=== PATIENT | female | born 1990 | race Caucasian/White ===

== ENCOUNTER 2017-06-01 09:32 | Outpatient (CLI) | payer BC ==
--- NOTE | 2017-06-01 10:54 | ULT ---
SOFT TISSUE ULTRASOUND NECK: History: 27-year-old female with history of mass behind her ear. There is a palpable mass behind her right ear and right neck. FINDINGS: The palpable finding behind the right ear shows evidence for this being a lymph node measuring 0.3 x 1.4 cm. Additionally in the right neck there are multiple lymph nodes up to approximately 0.6 x 1.7 c m. IMPRESSION: A palpable finding behind the right ear appears to represent a lymph node as well as some other borde rline size lymph nodes seen in the right neck. POS: NIMA
== END 2017-06-01 09:33 | disposition home or self-care (01) ==
LOC: SCSULT 09:32
PROVIDERS: ATTEND Nurse Practitioner Family
DX: M79.9 Soft tissue disorder, unspecified (principal)
CPT/HCPCS: 76999

== ENCOUNTER 2017-11-10 21:09 | Emergency (ER) | payer BC ==
[2017-11-10 21:52] LABS: #Basophils 0.1 thou/uL (0.0-0.2); #Lymphocytes 1.8 thou/uL (1.20-3.40); #Monocytes 0.5 thou/uL (0.11-0.59); #Neutrophils 5.8 thou/uL (1.40-6.50); %Basophils 0.8 % (0.0-1.0); %Eosinophils 0.2 % (0.0-10.0); %Lymphocytes 21.7 % (21.0-51.0); %Monocytes 5.7 % (0.0-10.0); %Neutrophils 71.7 % (42.0-75.0); Hemoglobin 13.2 g/dL (12.0-16.0); Mean Corpuscular HGB CONC 32.7 g/dL (32.0-36.0); Mean Corpuscular Hemoglobin 30.2 pg (27.0-31.0); Mean Corpuscular Volume 92.5 fL (78.0-98.0); Platelet Count 315 thou/uL (130-400); RBC Distribution Width 11.5 % (11.5-14.5); Red Blood Cell (RBC) Count 4.37 mill/uL (4.20-5.40); White Blood Cell (WBC) Count 8.1 thou/uL (4.8-10.8)
[2017-11-10] MEDS ORDERED: HYDROcodone/Acetaminophen 5/325 mg Tablet ONE (22:12)
[2017-11-10 22:14] LABS: ALT (SGPT) 10 U/L (8-55); AST (SGOT) 10 U/L (5-34); Albumin 4.3 g/dL (3.5-5.0); Alkaline Phosphatase 49 U/L (40-150); Anion Gap 12 mmol/L (10-20); BUN (Urea Nitrogen) 5 mg/dL (7.0-18.7); Bilirubin, Total 0.3 mg/dL (0.2-1.2); Calc. Creatinine Clearance 0 mL/min (70-130); Calcium 9.2 mg/dL (7.8-10.44); Carbon Dioxide 22 mmol/L (22-29); Chloride 105 mmol/L (98-107); Estimated GFR-MDRD Greater than 90; Globulin 3.3 g/dL (2.4-3.5); Glucose 140 mg/dL (70-105); Lipase 16 U/L (8-78); Potassium 3.5 mmol/L (3.5-5.1); Protein, Total 7.6 g/dL (6.0-8.3); Sodium 135 mmol/L (136-145)
[2017-11-10] MEDS ORDERED: Ondansetron ODT 8 MG TAB ONE (22:16)
[2017-11-10 22:23] LABS: Bilirubin Negative (Negative); Blood, Urine Negative (Negative); Clarity CLEAR (Clear); Glucose, Urine (Dipstick) Negative (Negative); Leukocyte Negative (Negative); Nitrite Negative (Negative); Protein, Urine (Dipstick) Negative (Neg-Trace); Specific Gravity, Urine 1.023 (1.002-1.036)
[2017-11-10 22:24] LABS: Pregnancy Test - Urine (BHCG) POSITIVE (Negative); Pregu Control Background? CLEAR/WHITE (CLR/WHITE); Pregu Control Bar Appear? YES (CONTROL BAR); Specific Gravity 1.023 (1.002-1.036)
--- NOTE | 2017-11-11 07:17 | ULT ---
ULTRASOUND PELVIC ULTRASOUND TRANSVAGINAL DOPPLER DUPLEX: Date: 11/10/17 Time: 2353 hours HISTORY: 27-year-old female with pelvic pain. TECHNIQUE: Transabdominal transducer used to evaluate intrapelvic contents using the urinary bladder as an acous tic window. Endovaginal transducer used to visualize intrapelvic contents in greater detail. Color fl ow Doppler and Pulsed Doppler spectral waveform analysis of ovaries. FINDINGS: Uterus measures 9 x 4 x 4.5 cm. There is an intrauterine gestational sac containing a yolk sac and a tiny embryonic pole. Bonnie Brae-rump length is 0.2 cm, corresponding to 5W, 5D gestational age. heart rate 104 BPM. Subtle finding of moderate size region of slightly low echogenicity around the gestational sac, quest ionable for subchorionic hemorrhage. Small amount of free fluid in the cul-de-sac. Right ovary 3 x 3 cm. Left ovary 2.6 x 1.8 x 1.8 cm. Blood flow demonstrated in both ovaries by Doppler. IMPRESSION: 1. Live, early first trimester intrauterine gestation estimated to be 5 weeks, 5 days gestational ag e. 2. Mild embryonic bradycardia and questionable moderate sized subchorionic hemorrhage. This increase s the risk for first trimester intrauterine demise. Recommend serial follow-up serum beta HCG l evels, and if clinically indicated, follow-up pelvic and transvaginal ultrasounds. ESDRAS Askew POS: NIMA
== END 2017-11-11 00:33 | disposition home or self-care (01) ==
LOC: ERS 21:09
DX: O99.89 Other specified diseases and conditions complicating pregnancy, childbirth and the puerperium (principal); R10.32 Left lower quadrant pain; O99.341 Other mental disorders complicating pregnancy, first trimester; F41.9 Anxiety disorder, unspecified; F32.9 Major depressive disorder, single episode, unspecified
CPT/HCPCS: 36415; 76856; 80053; 81003; 81025; 83690; 84702; 85025

== ENCOUNTER 2018-03-31 15:53 | Day surgery (SDC) | payer BC ==
--- NOTE | 2018-03-31 17:46 | ER ---
DATE OF SERVICE: 03/31/2018 PRIMARY OB: Dr. Lukas Recinos. CHIEF COMPLAINT: Fall. HISTORY OF PRESENT ILLNESS: The patient is a 27-year-old, G1, P0, female with an intrauterine at 25 weeks and 5 days, who presents today after falling forward while walking a dog in the grass and landing on her left side and abdomen. The patient reports that when she fell, she felt something stretched. She denies any pain. She denies any residual trauma on her belly, legs, or arms such as bruises or scrapes. The patient fell on soft grass. The patient denies any uterine contractions, vaginal bleeding, or leakage of fluid. She does report she has a history of migraines, but not anything currently. Denies fever, illness, chest pain, or shortness of breath. The patient does have nausea with this , but denies vomiting. Denies diarrhea or constipation. Denies any new rashes. Denies hip problems, knee problems, or muscle weakness. Denies vaginal bleeding or leakage of fluid. Denies urinary urgency. PAST MEDICAL HISTORY: Negative. PAST SURGICAL HISTORY: Negative. ALLERGIES: NO KNOWN DRUG ALLERGIES. MEDICATIONS: vitamins. SOCIAL HISTORY: Denies drug, alcohol, or tobacco use. LABORATORY DATA: OB labs are unavailable at this time. REVIEW OF SYSTEMS: Per HPI. PHYSICAL EXAMINATION: VITAL SIGNS: Blood pressure 117/80, heart rate of 88, respiratory rate of 18, and temperature 98.4. GENERAL: She appears to be in no acute distress. She is alert and oriented. Cooperative and pleasant to interact with. HEAD: Normocephalic and atraumatic. LUNGS: Clear to auscultation bilaterally. HEART: Has regular rate and rhythm. ABDOMEN: Soft, gravid, and nontender. EXTREMITIES: Nontender and nonedematous. : Exam has been deferred. heart tracing demonstrates a baseline in the 140s with moderate long-term variability with 15 x 15 accelerations. No contractions seen on the monitor. ASSESSMENT AND PLAN: The patient is a 27-year-old, G1, P0, female with an intrauterine at 25 weeks and 5 days, who presented after a fall approximately 2 hours prior to presentation on to her side and belly in a soft grass. The patient felt a stretch and came for evaluation. There is no evidence at this time of any labor or abruption or rupture of membranes. The patient has no pain or symptoms currently. Fetus has a category 1 tracing and no evidence of contractions. We will monitor her for 4 hours from the time of the incident, and if there are no new signs or symptoms of concern, the patient will be discharged to home. She has instructions to follow up with Dr. Recinos as scheduled. Job ID: [id number]
[2018-03-31 18:09] VITALS: BMI 33.6
== END 2018-03-31 18:50 | disposition home or self-care (01) ==
LOC: L&D/OP 15:53
PROVIDERS: ATTEND Family Medicine
DX: Z04.3 Encounter for examination and observation following other accident (principal)
CPT/HCPCS: 99282

== ENCOUNTER 2018-07-15 13:36 | Inpatient (IN) | payer BC ==
[2018-07-15] MEDS ORDERED: Misoprostol 200 MCG TAB PR PRN (14:34)
[2018-07-15] MEDS ORDERED: Promethazine HCl 25 MG/ML VIAL IM PRN ×4 (14:34→23:41)
[2018-07-15] MEDS ORDERED: Lidocaine 1% (PF) 30 ML VIAL SC PRN (14:34)
[2018-07-15] MEDS ORDERED: NS / Oxytocin 40 units/1000ml 1,000 ML IV PRN (14:34)
[2018-07-15] MEDS ORDERED: Methylergonovine 0.2 MG/ML VIAL IM PRN (14:34)
[2018-07-15] MEDS ORDERED: Acetaminophen 500 MG TAB PO PRN (14:34)
[2018-07-15] MEDS ORDERED: HYDROcodone/Acetaminophen 5/325 mg Tablet PO PRN (14:34)
[2018-07-15] MEDS ORDERED: Butorphanol Tartrate 1 MG/ML VIAL SLOW IVP PRN (14:34)
[2018-07-15] MEDS ORDERED: Carboprost 250 MCG/ML AMP IM PRN (14:34)
[2018-07-15] MEDS ORDERED: Ibuprofen 800 MG TAB PO PRN (14:34)
[2018-07-15] MEDS ORDERED: Ondansetron PF 4 MG/2 ML Vial IVP PRN ×4 (14:34→23:41)
[2018-07-15] MEDS ORDERED: Lidocaine 2% PF 5 ML VIAL ONE (15:12)
[2018-07-15] MEDS ORDERED: Ondansetron PF 4 MG/2 ML Vial ONE ×2 (15:12→20:27)
[2018-07-15 15:25] LABS: Hemoglobin 11.8 g/dL (12.0-16.0); Mean Corpuscular HGB CONC 33.3 g/dL (32.0-36.0); Mean Corpuscular Hemoglobin 29.5 pg (27.0-31.0); Mean Corpuscular Volume 88.4 fL (78.0-98.0); Mean Platelet Volume 8.3 fL (7.4-10.4); Platelet Count 268 thou/uL (130-400); RBC Distribution Width 12.9 % (11.5-14.5); Red Blood Cell (RBC) Count 4.01 mill/uL (4.20-5.40); White Blood Cell (WBC) Count 17.1 thou/uL (4.8-10.8)
[2018-07-15 16:05] LABS: HBSAg Index 0.29 S/CO (0-0.99); Hep B Surf Ag Non-Reactive S/CO (NonReactive)
[2018-07-15 16:06] LABS: Syphilis Antibody Nonreactive (Nonreactive); Syphilis Antibody Index 0.03 S/CO (<1.00 Non-Reactive)
[2018-07-15] MEDS ORDERED: Bupivacaine 0.5% 10 ML VIAL ONE (17:03)
[2018-07-15] MEDS ORDERED: Fentanyl 100 MCG/2 ML VIAL ONE (17:03)
[2018-07-15] MEDS ORDERED: Acetaminophen 325 MG TAB PO PRN ×2 (17:05→23:03)
[2018-07-15] MEDS ORDERED: diphenhydrAMINE 50 MG/ML VIAL IVP PRN ×3 (17:05→23:41)
[2018-07-15] MEDS ORDERED: Lactated Ringer's 500 ML IV PRN (17:05)
[2018-07-15] MEDS ORDERED: Naloxone HCl 0.4 mg/ml Vial IVP PRN ×4 (17:05→20:09)
[2018-07-15] MEDS ORDERED: ePHEDrine/0.9% NaCl/PF SYRINGE 50 mg/10 ml SLOW IVP PRN (17:05)
[2018-07-15] MEDS ORDERED: Fentanyl 100 MCG/2 ML VIAL I-THECAL ONE (17:06)
[2018-07-15] MEDS ORDERED: Fentanyl 4 mcg/Bup 0.1% Cadd 100 ML ONE (17:07)
[2018-07-15] MEDS ORDERED: Bupivacaine 0.25% 10 ML VIAL EPIDURAL ONE (17:07)
[2018-07-15] MEDS ORDERED: Fentanyl 4 mcg/Bupivacaine 0.1% Cassette 100 ML EPIDURAL SCH (17:15)
[2018-07-15] MEDS ORDERED: Communication Order-Pharmacy FS SCH ×2 (17:15→20:15)
[2018-07-15 17:16] VITALS: BMI 45.1
[2018-07-15] MEDS: Lactated Ringer's 1,000 ML IV SCH ×2 (17:21→18:03)
[2018-07-15] MEDS ORDERED: Bicitra 30 ML UDCUP ONE (19:50)
--- NOTE | 2018-07-15 19:55 | PDOC.EVN ---
Event Note - Event Note Event Note: [facility] PREOP Note Time: [address] Recinos for FHR decels at 5cm...LDR3 Patient just s/p internals...prolonged severe decel to 60s with slow recovery over 4-[address] Recinos and I reviewed the prior strip: prior lates noted as well with prior episodes of FHR decels. Anesthesia: combined SAB/ABBI BP was 140s/80s No VB No evidence cord prolpase As EGA is 41 weeks, I suspect some uteroplacental dysfunction. Due to inability to tolerate labor at 5cm, we will proceed with operative . Plan D/W patient and family at bedside
--- NOTE | 2018-07-15 19:57 | PDOC.EVN ---
Event Note - Event Note Event Note: At bedside to place internal monitors for occasional lates and poor tracing quality. Immediately after placing IUPC and FSE the baby had a long deceleration into the 60's, recovered after several minutes with repositioning and bolus and O2. Dr. Higuera called to bedside as well. We agree it is prudent to proceed with primary C/S for indication of non-reassuring heart tracing remote from delivery. Anesthesia called and moving to the OR urgently. At this time FHT 130 with moderate variability, mom in knee chest, SVE 5/90/0.
[2018-07-15] MEDS ORDERED: Azithromycin 500 MG in Sodium Chloride 0.9% 250 ML 250 ML IVPB SCH (20:00)
[2018-07-15] MEDS ORDERED: CEFAZOLIN 2 GM in Premix Bag 1 BAG IVPB SCH (20:00)
--- NOTE | 2018-07-15 20:04 | PDOC.LDHP ---
Labor and Delivery H&P Chief complaint: loss of fluid (1230pm today, clear) HPI: ROM at home 1230pm today, clear fluid, good movement, contractions started after that Current gestational age (weeks): 40 Due date: 07/09/18 Dating criteria: last menstrual period, first trimester ultrasound Grav: 1 Para: 0 Current complications: none Abnormal US findings: No Current medications: pre-bj vitamins Previous surgical history: none Allergies/Adverse Reactions: Allergies Allergy/AdvReac Type Severity Reaction Status Date / Time No Known Allergies Allergy Verified 07/15/18 17:18 Social history: none - Physical Exam Vital signs reviewed and normal: yes General: NAD Heart: RRR Lungs: CTAB Abdomen: gravid Extremeties: no edema FHT: category 2, late decelerations (Intermittent), variability present [place] contractions every: 3-4 minutes - Vaginal Exam cm dilated: 4 Effacement: 90% Station: -1 - OB Labs Blood type: A RH: positive Antibody Screen: negative HIV: negative RPR: negative HEPSAg: negative 1 hour GCT: positive 3 hour GTT: Normal x4 values GBS: negative Urine drug screen: not done Rubella: immune - Assessment L&D Assessment: term rupture in membranes - Plan Plan: admit to L&D, anesthesia consult for pain management
[2018-07-15] MEDS ORDERED: ePHEDrine/0.9% NaCl/PF SYRINGE 50 mg/10 ml ONE (20:08)
[2018-07-15] MEDS ORDERED: Oxytocin 10 UNITS/ML VIAL ONE (20:08)
[2018-07-15] MEDS ORDERED: Naloxone HCl 0.4 mg/ml Vial IV PRN ×4 (20:09→23:41)
[2018-07-15] MEDS ORDERED: Ondansetron HCl/PF 4 MG/2 ML Vial IVP PRN (20:09)
[2018-07-15] MEDS ORDERED: Promethazine HCl 25 MG SUPP PR PRN ×2 (20:09→23:41)
[2018-07-15] MEDS ORDERED: PROPOFOL 0 ML ONE (20:10)
[2018-07-15] MEDS ORDERED: Succinylcholine Chloride 20 MG/ML 10 ml SYRINGE FS ONE (20:10)
[2018-07-15] MEDS ORDERED: Acetaminophen 1,000 MG in Premix Bag 1 BAG IVPB PRN (20:10)
[2018-07-15] MEDS ORDERED: Ketorolac Tromethamine 30 MG/ML VIAL IVP SCH ×2 (20:15→23:59)
[2018-07-15] MEDS ORDERED: Lidocaine 2% 10 ML INJ ONE (20:20)
[2018-07-15] MEDS ORDERED: MORPHINE 5 MG/10 ML PF VIAL ONE (20:42)
[2018-07-15 20:49] LABS: Actual Bicarbonate (HCO3a) 27.5 mEq/L (22-28); Base Excess (BEa) -1.3 mEq/L (-2.0 to +3.0)
[2018-07-15] MEDS ORDERED: Lidocaine 2% MPF 10 ML AMP (For Epidural Use) ONE (21:00)
--- NOTE | 2018-07-15 21:15 | PDOC.OPDEL ---
OB Operative/Delivery Note Delivery Dr/Surgeon: Kalen Assist: Jorje Pre-Delivery Diagnosis: active labor, non-reassuring tracing (Persistent cat 2) Procedure/Post Delivery Dx: primary low transverse CS Anesthesia: spinal (combined ABBI) - Findings A Sex: male - Additional Findings/Plan Placenta delivered: spontaneous (sent to path) findings: low transverse hysterotomy without extension, normal uterus, normal tubes, normal ovaries Estimated blood loss: 500-600 Compilations/Other Findings: 2 layer hysterotomy closure; umbilical arterial gas was 7.27; NC x 1 loose- reduced Post delivery plan: recovery in LICU (Op note Dictated)
--- NOTE | 2018-07-15 21:43 | OP ---
DATE OF PROCEDURE: 07/15/2018 The time of is roughly 2030 or so. INDICATION FOR : This is a patient of Dr. Recinos, who assisted with the , and we decided on performing an operative abdominal delivery due to nonreassuring heart rate tracing, category 2 tracing with deep variable deceleration that was prolonged. There was also episodes of late decelerations. As she was remote from delivery, at 5 cm, and at 41 weeks gestation, the hypothesis was that there was uteroplacental insufficiency and intolerance of labor. PREOPERATIVE DIAGNOSES: 1. intolerance of labor. 2. Persistent category 2 heart rate tracing. 3. Deep severe variable deceleration with slow recovery to baseline. 4. Late term . POSTOPERATIVE DIAGNOSES: 1. intolerance of labor. 2. Status post primary . PROCEDURES PERFORMED: 1. Primary low transverse under Pfannenstiel skin incision. 2. Two-layer uterine closure. GROUNDS KEEPER: Lukas Recinos MD ANESTHESIA: Combined spinal anesthetic/epidural per Dr. Vance. ANTIBIOTICS: Zithromax and typical perioperative antibiotic per Anesthesia. IV FLUIDS: About 700 mL crystalloid. URINE OUTPUT: Clear urine by Chowdhury (see Anesthesia record). ESTIMATED BLOOD LOSS: About 600 mL, QBL is still pending. FINDINGS: 1. There is a vigorous male. 2. Nuchal cord x1 that was loose. 3. Baby was cephalic and in an OP position. 4. Hemostasis post uterine repair. 5. Placenta intact. 6. Normal adnexa. 7. NICU present for delivery. 8. Apgars per Anesthesia record (baby vigorous at ). 9. Umbilical arterial cord gas 7.2. EBL is about 500-600, QBL pending. COMPLICATIONS: None. COUNTS: Correct. PATHOLOGY: Placenta. DISPOSITION: To recovery room in good and stable condition. TECHNIQUE: After proper informed consent was explained, she was transported to the operating room in Labor and Delivery, where the abdomen was prepped and draped in the usual sterile fashion. A Pfannenstiel skin incision was made about two fingerbreadths above the pubic symphysis. This was done with a scalpel. Bovie cautery on cut mode was used to dissect the subcutaneous tissue down to the level of the fascia. The fascia was cleaned off any overlying fat and entered in a transverse fashion with Bovie cautery on cut mode. Care was taken to avoid the underlying structures. Rectus muscles were out from midline and the underlying peritoneum was elevated with hemostats. Entry into the abdominopelvic cavity was done without complication. We placed an Jeb O retractor into the abdomen for visualization. A low transverse hysterotomy was made with a scalpel without bladder flap creation. Baby was noted to be in a cephalic presentation and the baby was delivered in an atraumatic fashion. We allowed for delayed cord clamp of about 30 to 45 seconds. Cord was then doubly clamped, transected, and the baby was handed to the NICU team, who was present for delivery. Baby was vigorous. The placenta was massaged out of the uterine cavity and it was intact. It was sent to Pathology. Curettage of the uterine cavity revealed absence of retained products of conception. Uterus was closed in two layers using #1 Monocryl in a running locking fashion with the first and then imbricating layer with the second. Copious irrigation was done of the intraabdominal area and the parietal peritoneum and rectus muscles were reapproximated in the midline using 2-0 chromic in a loose running nonlocking stitch. After confirming hemostasis under the fascial edge, fascia was closed with 0 PDS suture x2 in a running nonlocking fashion. Copious irrigation was done of the subcutaneous tissue and the subcutaneous tissue was closed with 3-0 plain gut suture. The skin was closed with 3-0 Monocryl using a Reji needle and Dermabond was placed over the incision. The patient seemed to tolerate the procedure well. Job ID: [id number]
[2018-07-15] MEDS ORDERED: Ketorolac Tromethamine 30 MG/ML VIAL ONE (22:12)
[2018-07-15] MEDS ORDERED: Lanolin Ointment 7 GM TUBE TOP PRN (23:03)
[2018-07-15] MEDS ORDERED: Simethicone Chewable 80 MG TAB PO PRN (23:03)
[2018-07-15] MEDS ORDERED: diphenhydrAMINE 25 MG CAP PO PRN (23:03)
[2018-07-15] MEDS ORDERED: Bisacodyl 10 MG SUPP PR PRN (23:03)
[2018-07-15] MEDS ORDERED: Hydrocerin (Eucerin) Cream 120 gm Jar TOP PRN (23:41)
[2018-07-15] MEDS ORDERED: NO PO,IM,IV OR SC NARCOTICS FOR 12HR EXCEPT BY ANESTHESIA PO SCH (23:41)
[2018-07-16] MEDS ORDERED: Ibuprofen 800 MG TAB PO SCH (06:00)
[2018-07-16] MEDS: Ketorolac Tromethamine 30 MG/ML VIAL IVP PRN ×2 (06:02→15:07)
[2018-07-16 06:34] LABS: Hemoglobin 10.3 g/dL (12.0-16.0); Mean Corpuscular Hemoglobin 29.2 pg (27.0-31.0); Mean Corpuscular Volume 88.6 fL (78.0-98.0); Mean Platelet Volume 8.1 fL (7.4-10.4); Platelet Count 182 thou/uL (130-400); RBC Distribution Width 12.8 % (11.5-14.5); Red Blood Cell (RBC) Count 3.51 mill/uL (4.20-5.40); White Blood Cell (WBC) Count 12.8 thou/uL (4.8-10.8)
[2018-07-16] MEDS ORDERED: HYDROcodone/Acetaminophen 5/325 mg Tablet PO PRN ×2 (08:15)
[2018-07-16] MEDS: Docusate Calcium (SURFAK) 240 MG CAP PO SCH ×2 (08:58→21:28)
[2018-07-16] MEDS ORDERED: Acetaminophen 325 MG/10.15 ML UDCUP PO PRN (12:15)
[2018-07-16] MEDS: Sodium Chloride 0.9% 10 ML ONE ×2 (13:22→15:08)
--- NOTE | 2018-07-16 15:39 | PDOC.PP ---
Post Progress Note Post Day #: 1 Subjective: Doing well. No complaints. Bottle feeding. Pain controlled. PO intake tolerated: yes Flatus: yes Ambulation: yes Vital Signs (12 hours) Temp Pulse Resp BP Pulse Ox 07/16/18 11:20 98.4 F 112 H 20 118/66 07/16/18 07:55 96 07/16/18 07:52 98.0 F 85 20 108/59 L 96 07/16/18 06:00 18 07/16/18 04:00 98.3 F 101 H 18 123/60 Weight Weight 280 lb - Physical Examination General: NAD Cardiovascular: no m/r/g, RRR Respiratory: clear to auscultation bilaterally, non-labored breathing Abdominal: + bowel sounds, lochia, no distention, appropriately TTP Skin: CS incision dry & intact Psychiatric: A&Ox3, normal affect Result Diagrams: 07/16/18 06:12 Additional Labs: Post Labs Blood Type A POSITIVE 07/15/18 21:30 Hep Bs Antigen Non-Reactive S/CO (NonReactive) 07/15/18 15:16 (1) Single delivery by section Code(s): O82 - ENCOUNTER FOR DELIVERY WITHOUT INDICATION Status: Acute - Assessment/Plan Doing well Routine post-op care Continue to ambulate Possible D/C tomorrow if feeling well, if not then Thursday - baby doing well
[2018-07-16] MEDS: Ibuprofen 800 MG TAB PO SCH (21:28)
--- NOTE | 2018-07-17 05:34 | PDOC.PP ---
Post Progress Note Post Day #: 2 Subjective: Doing well, pain controlled, tolerating PO, bottlefeeding PO intake tolerated: yes Flatus: yes Ambulation: yes Vital Signs (12 hours) Temp Pulse Resp BP Pulse Ox 07/17/18 00:19 97.7 F 89 18 137/59 L 07/16/18 19:50 98.3 F 99 18 137/64 98 Weight Weight 280 lb - Physical Examination General: NAD Cardiovascular: no m/r/g, RRR Respiratory: clear to auscultation bilaterally, non-labored breathing Abdominal: + bowel sounds, lochia, no distention, appropriately TTP Skin: CS incision dry & intact, no rash Result Diagrams: 07/16/18 06:12 Additional Labs: Post Labs Blood Type A POSITIVE 07/15/18 21:30 Hep Bs Antigen Non-Reactive S/CO (NonReactive) 07/15/18 15:16 (1) Single delivery by section Code(s): O82 - ENCOUNTER FOR DELIVERY WITHOUT INDICATION Status: Acute - Assessment/Plan Routine post-op FPC likely tomorrow
[2018-07-17] MEDS ORDERED: Ibuprofen 800 MG TAB PO SCH (06:00)
[2018-07-17] MEDS: Ibuprofen 800 MG TAB PO SCH ×3 (06:20→21:33)
[2018-07-17] MEDS: Docusate Calcium (SURFAK) 240 MG CAP PO SCH ×2 (08:45→21:33)
[2018-07-18] MEDS: Ibuprofen 800 MG TAB PO SCH (05:40)
--- NOTE | 2018-07-18 08:10 | PDOC.PP ---
Post Progress Note Post Day #: 3 Subjective: Doing well, pain controlled, ready for D/C PO intake tolerated: yes Flatus: yes Ambulation: yes Vital Signs (12 hours) Temp Pulse Resp BP 07/17/18 20:20 98.1 F 99 18 135/85 Weight Weight 280 lb - Physical Examination General: NAD Cardiovascular: no m/r/g, RRR Respiratory: clear to auscultation bilaterally, non-labored breathing Abdominal: + bowel sounds, lochia, no distention, appropriately TTP Result Diagrams: 07/16/18 06:12 Additional Labs: Post Labs Blood Type A POSITIVE 07/15/18 21:30 Hep Bs Antigen Non-Reactive S/CO (NonReactive) 07/15/18 15:16 (1) Single delivery by section Code(s): O82 - ENCOUNTER FOR DELIVERY WITHOUT INDICATION Status: Acute - Assessment/Plan Routine postop care D/C home
[2018-07-18 08:59] VITALS: BP 117/67; TEMP 97.7
[2018-07-18] MEDS: Docusate Calcium (SURFAK) 240 MG CAP PO SCH (09:45)
== END 2018-07-18 10:30 | disposition home or self-care (01) | DRG 788 ==
LOC: L&D/OP 13:36 → L&D 14:38 → 3SW 23:33
PROVIDERS: ADMIT Family Medicine; ATTEND Family Medicine
PROC: 10D00Z1 Extraction of Products of Conception, Low, Open Approach (ICD-10-PCS; principal; 2018-07-15)
DX: O76 Abnormality in fetal heart rate and rhythm complicating labor and delivery (principal); O48.0 Post-term pregnancy; Z3A.41 41 weeks gestation of pregnancy; O69.81X0 Labor and delivery complicated by cord around neck, without compression, not applicable or unspecified; Z37.0 Single live birth
CPT/HCPCS: 36415; 51702; 82805; 85027; 86780; 86850; 86900; 86901; 87340; 99285; J0131; J0456; J0690; J1885; J2001; J2270; J2405; J2590; J2704; J3010; J3490; J7050; S0020

== ENCOUNTER 2018-10-13 20:48 | Emergency (ER) | payer BC ==
[2018-10-13 21:58] LABS: #Eosinphils 0.2 thou/uL (0.0-0.7); #Lymphocytes 2.3 thou/uL (1.20-3.40); #Monocytes 0.8 thou/uL (0.11-0.59); #Neutrophils 4.7 thou/uL (1.40-6.50); %Basophils 0.5 % (0.0-1.0); %Eosinophils 2.3 % (0.0-10.0); %Lymphocytes 28.9 % (21.0-51.0); %Monocytes 9.4 % (0.0-10.0); Hemoglobin 13.7 g/dL (12.0-16.0); Mean Corpuscular HGB CONC 32.5 g/dL (32.0-36.0); Mean Corpuscular Hemoglobin 28.8 pg (27.0-31.0); Mean Corpuscular Volume 88.6 fL (78.0-98.0); Mean Platelet Volume 8.5 fL (7.4-10.4); Platelet Count 305 thou/uL (130-400); RBC Distribution Width 12.6 % (11.5-14.5); Red Blood Cell (RBC) Count 4.77 mill/uL (4.20-5.40)
--- NOTE | 2018-10-13 22:00 | RAD ---
RADIOGRAPH CHEST 2 VIEWS: DATE: 10/13/2018 HISTORY: 28-year-old female with chest pain and cough FINDINGS: There is no airspace density, pulmonary edema, pleural effusion, pneumothorax, or cardiomegaly. Mild dextroscoliosis of thoracic spine. IMPRESSION: 1. No acute cardiopulmonary findings. 2. Mild dextroscoliosis of thoracic spine.
[2018-10-13 22:23] LABS: ALT (SGPT) 28 U/L (8-55); AST (SGOT) 13 U/L (5-34); Albumin 4.3 g/dL (3.5-5.0); Alkaline Phosphatase 83 U/L (40-150); Anion Gap 14 mmol/L (10-20); BUN (Urea Nitrogen) 10 mg/dL (7.0-18.7); Bilirubin, Total 0.3 mg/dL (0.2-1.2); CK (CPK) 34 U/L (29-168); Calc. Creatinine Clearance 0 mL/min (70-130); Calcium 9.4 mg/dL (7.8-10.44); Carbon Dioxide 23 mmol/L (22-29); Chloride 105 mmol/L (98-107); Estimated GFR-MDRD Greater than 90; Globulin 3.2 g/dL (2.4-3.5); Glucose 113 mg/dL (70-105); Potassium 3.5 mmol/L (3.5-5.1); Protein, Total 7.5 g/dL (6.0-8.3); Sodium 138 mmol/L (136-145)
[2018-10-13] MEDS ORDERED: Ibuprofen 200 MG TAB ONE (22:31)
[2018-10-13 22:58] LABS: MONO NEGATIVE CONTROL ZONE White (Negative) (White); MONO POSITIVE CONTROL Pink Line (Positive) (PINK/RED); Mononucleosis NEGATIVE (NEGATIVE)
== END 2018-10-13 23:09 | disposition home or self-care (01) ==
LOC: ERS 20:48
DX: J20.9 Acute bronchitis, unspecified (principal)
CPT/HCPCS: 36415; 71046; 80053; 82550; 84484; 85025; 85379; 86308; 93005

== ENCOUNTER 2018-10-28 10:20 | Outpatient (CLI) | payer BC ==
--- NOTE | 2018-10-28 11:21 | ULT ---
LIMITED RIGHT BREAST ULTRASOUND: 10/28/2018 PROVIDED CLINICAL HISTORY: Lateral right breast pain. FINDINGS: Limited sonographic interrogation of the right breast was performed from the 12 to 7 o'clock position s. The sonographic appearance of the breast parenchyma is normal. IMPRESSION: No sonographic abnormality involving the interrogated portions of the right breast is evident. Negative imaging findings should not preclude further evaluation of a clinically suspicious finding. The patient is referred back to her clinician. POS: OFF
--- NOTE | 2018-10-28 11:23 | ULT ---
LIMITED LEFT BREAST ULTRASOUND: 10/28/2018 PROVIDED CLINICAL HISTORY: Left breast palpable abnormality. TECHNIQUE: Limited sonographic interrogation was performed of the left breast, in the region of concern. FINDINGS: The sonographic appearance of the breast tissue in this region is normal. IMPRESSION: No sonographic abnormality is evident to correspond to the reported palpable finding. Negative imaging findings should not preclude further evaluation of a clinically suspicious area. Th e patient is referred back to her clinician. POS: OFF
== END 2018-10-28 10:21 | disposition home or self-care (01) ==
LOC: BICULT 10:20
PROVIDERS: ATTEND Family Medicine
DX: N64.4 Mastodynia (principal)